=== PATIENT | female | born 1995 | race Caucasian/White ===

== ENCOUNTER 2017-03-27 10:49 | Inpatient (IN) | payer OTHER ==
[~2017-03-27] VITALS: Ht 167.6 cm; Wt 89.9 kg
[2017-03-27 10:52] VITALS: BP 161/99; PULSE 102; RESP 18; TEMP 98; O2SAT 100
[2017-03-27] MEDS ORDERED: LORazepam 2 MG TAB PO ONE (11:30)
--- NOTE | 2017-03-27 11:30 | PD ---
HPI Chief Complaint: Psychiatric Symptoms Time Seen by Provider: 11:27 Travel History International Travel<30 days: No Contact w/Intl Traveler<30days: No Traveled to known affect area: No History of Present Illness HPI 22-year-old female that presents to the ED for evaluation of psychiatric illness. Patient comes here voluntarily for evaluation of this brought by father. Patient has a chronic history of bipolar disorder and schizophrenia. Patient used to take medications but per father she's been out of medications for sometime and unclear as to how long. Per father she has been acting very abnormal. She is more paranoid and has flight of ideas. She appears to interact with internal stimuli at that she completely denies this. She denies any drug abuse or alcohol abuse. She does not know what she used to take. She herself is not a good historian but does appear to be interacting with internal stimuli. She denies any homicidal or suicidal ideation. Mother brings her here for evaluation. Unclear as to the length of time the symptoms have been ongoing but possibly for about a week. No chest pain or shortness of breath. No medical issues. PFSH Past Medical History Bipolar Disorder: Yes Immunizations Current: Yes Schizophrenia: Yes Tetanus Vaccination: Unknown Influenza Vaccination: No ?: Not LMP: UNK Past Surgical History Cholecystectomy: Yes Social History Alcohol Use: Yes (OCCASIONALLY ) Tobacco Use: No Allergies-Medications (Allergen,Severity, Reaction): Coded Allergies: No Known Allergies (Unverified , 03/27/17) Reported Meds & Prescriptions Reported Meds & Active Scripts Active Active Prescriptions or Reported Medications Unobtainable Review of Systems Except as stated in HPI: all other systems reviewed are Neg Physical Exam Narrative GENERAL: SKIN: Warm and dry. HEAD: Atraumatic. Normocephalic. EYES: Pupils equal and round. No scleral icterus. No injection or drainage. ENT: No nasal bleeding or discharge. Mucous membranes pink and moist. Tongue is midline. No uvula deviation. NECK: Trachea midline. No JVD. CARDIOVASCULAR: Regular rate and rhythm. No murmurs, S3, S4. RESPIRATORY: No accessory muscle use. Clear to auscultation. Breath sounds equal bilaterally. GASTROINTESTINAL: Abdomen soft, non-tender, nondistended. Hepatic and splenic margins not palpable. MUSCULOSKELETAL: Extremities without clubbing, cyanosis, or edema. No obvious deformities. Full range of motion of the upper and lower extremity is bilaterally. 2+ pulses bilaterally. NEUROLOGICAL: Awake and alert. No obvious cranial nerve deficits. Motor grossly within normal limits. Five out of 5 muscle strength in the arms and legs. Normal speech. PSYCHIATRIC: Psychotic mood and affect; insight and judgment diminished Data Data Last Documented VS Vital Signs Date Time Temp Pulse Resp B/P Pulse Ox O2 Delivery O2 Flow Rate FiO2 03/27/17 11:01 18 03/27/17 10:52 98.0 102 161/99 100 Orders Complete Blood Count With Diff (03/27/17 11:13) Comprehensive Metabolic Panel (03/27/17 11:13) Psych Screen (03/27/17 11:13) Drug Screen, Random Urine (03/27/17 11:13) Alcohol (Ethanol) (03/27/17 11:13) Lorazepam (Ativan) (03/27/17 11:30) Labs Laboratory Tests Test 03/27/17 11:20 White Blood Count 11.3 TH/MM3 Red Blood Count 4.58 MIL/MM3 Hemoglobin 12.9 GM/DL Hematocrit 38.8 % Mean Corpuscular Volume 84.7 FL Mean Corpuscular Hemoglobin 28.0 PG Mean Corpuscular Hemoglobin 33.1 % Concent Red Cell Distribution Width 14.0 % Platelet Count 429 TH/MM3 Mean Platelet Volume 8.1 FL Neutrophils (%) (Auto) 68.2 % Lymphocytes (%) (Auto) 21.4 % Monocytes (%) (Auto) 8.6 % Eosinophils (%) (Auto) 0.5 % Basophils (%) (Auto) 1.3 % Neutrophils # (Auto) 7.7 TH/MM3 Lymphocytes # (Auto) 2.4 TH/MM3 Monocytes # (Auto) 1.0 TH/MM3 Eosinophils # (Auto) 0.1 TH/MM3 Basophils # (Auto) 0.1 TH/MM3 CBC Comment DIFF FINAL Differential Comment MDM Medical Decision Making Medical Screen Exam Complete: Yes Emergency Medical Condition: Yes Medical Record Reviewed: Yes Interpretation(s) CBC Diagram 03/27/17 11:20 Differential Diagnosis Depression versus suicidal ideation versus anxiety versus adjustment disorder versus mood disorder versus bipolar disorder versus schizophrenia versus paranoid disorder versus psychosis versus substance abuse versus alcohol abuse versus alcohol induced psychosis versus homicidality addition versus cutting versus personality disorder Narrative Course 22-year-old female that presents to the ED for evaluation of psych. Patient was properly examined and was found to have signs and symptoms consistent with psychiatric illness. No sign of acute medical distress. Patient does appear to be somewhat psychotic but at this time she is voluntary and the father is here with her for support. Labs were drawn. Patient will be medically clear. Okay to be seen by psych. Mental health screening was discussed with the patient. Diagnosis Primary Impression: Schizophrenia Qualified Code: F20.9 - Schizophrenia, unspecified type Scripts Unable to Obtain Active Prescriptions or Reported Meds Son [place] Mar 27, 2017 11:30
[2017-03-27 11:37] LABS: AUTOMATED NEUTROPHIL # 7.7 TH/MM3 (1.8-7.7); BASOPHIL # 0.1 TH/MM3 (0-0.2); BASOPHIL % 1.3 % (0.0-2.0); EOSINOPHIL # 0.1 TH/MM3 (0-0.4); EOSINOPHIL % 0.5 % (0.0-4.0); HEMATOCRIT 38.8 % (35.0-46.0); HEMO FLAGS DIFF FINAL; LYMPH % 21.4 % (9.0-44.0); LYMPHOCYTE # 2.4 TH/MM3 (1.0-4.8); MEAN CELL VOLUME 84.7 FL (80.0-100.0); MEAN CORPUSCULAR HGB CONC 33.1 % (32.0-36.0); MONO % 8.6 % (0.0-8.0); NEUT % 68.2 % (16.0-70.0); PLATELET COUNT 429 TH/MM3 (150-450); RED BLOOD COUNT 4.58 MIL/MM3 (4.00-5.30); WHITE BLOOD COUNT 11.3 TH/MM3 (4.0-11.0)
[2017-03-27 11:57] LABS: ANION GAP 7 MEQ/L (5-15); AST (GOT) 19 U/L (15-37); BICARBONATE 25.3 MEQ/L (21.0-32.0); BLOOD UREA NITROGEN 14 MG/DL (7-18); CHLORIDE 108 MEQ/L (98-107); GLOMERULAR FILTRATION RATE 87 ML/MIN (>89); POTASSIUM 3.3 MEQ/L (3.5-5.1); SODIUM (NA) 140 MEQ/L (136-145)
[2017-03-27 12:02] LABS: ALKALINE PHOSPHATASE 137 U/L (45-117); ALT (GPT) 44 U/L (10-53); TOTAL BILIRUBIN ADULT 0.8 MG/DL (0.2-1.0)
[2017-03-27] MEDS ORDERED: POTASSIUM CHLORIDE 20 MEQ CONTROLLED RELEASE TAB PO ONE (12:15)
[2017-03-27] MEDS ORDERED: HALOPERIDOL LACTATE 5 MG/ML AMP IM ONE (13:00)
[2017-03-27 15:00] VITALS: BP 124/87; PULSE 98; RESP 18; TEMP 98; O2SAT 100
[2017-03-27] MEDS ORDERED: ALUMINUM/MAGNESIUM/SIMETH 30 ML CUP PO PRN (15:00)
[2017-03-27] MEDS ORDERED: LORazepam 0.5 MG TAB PO PRN (15:00)
[2017-03-27] MEDS ORDERED: diphenhydrAMINE HCL 50 MG/ML VIAL IM PRN (15:00)
[2017-03-27] MEDS ORDERED: LORazepam 2 MG/ML VIAL IM PRN ×2 (15:00)
[2017-03-27] MEDS ORDERED: MAGNESIUM HYDROXIDE SUSP 30 ML CUP PO PRN (15:00)
[2017-03-27] MEDS ORDERED: ACETAMINOPHEN 325 MG TAB PO PRN (15:00)
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
[2017-03-27 18:00] VITALS: BP 130/83; PULSE 90; RESP 18; TEMP 98.1; O2SAT 96
[2017-03-27] MEDS: ARIPiprazole 5 MG TAB PO SCH (20:21)
[2017-03-27] MEDS: traZODone HCL 50 MG TAB PO PRN (22:32)
[2017-03-27] MEDS: LORazepam 1 MG TAB PO PRN (23:26)
[2017-03-28 06:03] VITALS: BP 117/62; PULSE 78; RESP 19; TEMP 98; O2SAT 98
[2017-03-28 09:30] LABS: AUTOMATED NEUTROPHIL # 5.2 TH/MM3 (1.8-7.7); BASOPHIL # 0.2 TH/MM3 (0-0.2); EOSINOPHIL # 0.2 TH/MM3 (0-0.4); HEMATOCRIT 38.5 % (35.0-46.0); HEMO FLAGS DIFF FINAL; LYMPH % 22.8 % (9.0-44.0); LYMPHOCYTE # 1.8 TH/MM3 (1.0-4.8); MEAN CELL VOLUME 85.1 FL (80.0-100.0); MEAN CORPUSCULAR HGB CONC 32.9 % (32.0-36.0); MONO % 6.7 % (0.0-8.0); NEUT % 65.5 % (16.0-70.0); PLATELET COUNT 362 TH/MM3 (150-450); RED BLOOD COUNT 4.53 MIL/MM3 (4.00-5.30); RED CELL DISTRIBUTION WIDTH 13.9 % (11.6-17.2); WHITE BLOOD COUNT 7.9 TH/MM3 (4.0-11.0)
[2017-03-28 09:52] LABS: ANION GAP 9 MEQ/L (5-15); AST (GOT) 20 U/L (15-37); BLOOD UREA NITROGEN 12 MG/DL (7-18); CHLORIDE 105 MEQ/L (98-107); GLOMERULAR FILTRATION RATE 96 ML/MIN (>89); POTASSIUM 3.2 MEQ/L (3.5-5.1); SODIUM (NA) 137 MEQ/L (136-145)
[2017-03-28 10:22] LABS: ALT (GPT) 40 U/L (10-53); HDL CHOLESTEROL 33.6 MG/DL (40.0-60.0); LDL CHOLESTEROL 56 MG/DL (0-99); TOTAL BILIRUBIN ADULT 0.8 MG/DL (0.2-1.0)
[2017-03-28 10:23] LABS: ALKALINE PHOSPHATASE 120 U/L (45-117)
--- NOTE | 2017-03-28 11:46 | EKG ---
Date Performed: 03/28/2017 Time Performed: 09:44:16 PTAGE: 22 years EKG: Sinus rhythm NORMAL ECG NO PREVIOUS TRACING DOCTOR: Morro Mcclelland Interpretating Date/Time 03/28/2017 11:45:09
--- NOTE | 2017-03-28 13:53 | HHI.PYPN ---
Subjective Remarks Patient was seen and case discussed with nursing. Patient remains bizarre and disorganized. She has poor insight and minimizes the reasons for her admission and her mental health history. She denies psychotic symptoms despite nursing noted that she told her hands over her years throughout the night listening to wind chimes. Patient speaks with exaggerated body language. Denies suicidal ideation intent or plan. Potassium level is low at 3.2 Objective Alert: Yes [place]: Person, Place, Date Mood: Oppositional Affect: Other (irritable) Memory Intact: Immediate Hallucinations: Auditory (denies but per nursing yes) Delusions: No Delusion Type: Other (none elicited) Suicidal: Ideation (denies) Homicidal: Ideation (denies) Insight/Judgment Poor Labs Test 03/28/17 08:32 White Blood Count 7.9 TH/MM3 Red Blood Count 4.53 MIL/MM3 Hemoglobin 12.7 GM/DL Hematocrit 38.5 % Mean Corpuscular Volume 85.1 FL Mean Corpuscular Hemoglobin 28.0 PG Mean Corpuscular Hemoglobin 32.9 % Concent Red Cell Distribution Width 13.9 % Platelet Count 362 TH/MM3 Mean Platelet Volume 8.2 FL Neutrophils (%) (Auto) 65.5 % Lymphocytes (%) (Auto) 22.8 % Monocytes (%) (Auto) 6.7 % Eosinophils (%) (Auto) 3.0 % Basophils (%) (Auto) 2.0 % Neutrophils # (Auto) 5.2 TH/MM3 Lymphocytes # (Auto) 1.8 TH/MM3 Monocytes # (Auto) 0.5 TH/MM3 Eosinophils # (Auto) 0.2 TH/MM3 Basophils # (Auto) 0.2 TH/MM3 CBC Comment DIFF FINAL Differential Comment Sodium Level 137 MEQ/L Potassium Level 3.2 MEQ/L Chloride Level 105 MEQ/L Carbon Dioxide Level 23.0 MEQ/L Anion Gap 9 MEQ/L Blood Urea Nitrogen 12 MG/DL Creatinine 0.74 MG/DL Estimat Glomerular Filtration 96 ML/MIN Rate Random Glucose 108 MG/DL Calcium Level 9.2 MG/DL Total Bilirubin 0.8 MG/DL Aspartate Amino Transf 20 U/L (AST/SGOT) Alanine Aminotransferase 40 U/L (ALT/SGPT) Alkaline Phosphatase 120 U/L Total Protein 7.5 GM/DL Albumin 4.1 GM/DL Triglycerides Level 68 MG/DL Cholesterol Level 103 MG/DL LDL Cholesterol 56 MG/DL HDL Cholesterol 33.6 MG/DL Cholesterol/HDL Ratio 3.06 RATIO Vitamin B12 Level 878 PG/ML 25-Hydroxy Vitamin D Total 34.8 ng/ML Thyroid Stimulating Hormone 3.550 uIU/ML 3rd Gen Vitals/IOs Vital Signs Date Time Temp Pulse Resp B/P Pulse Ox O2 Delivery O2 Flow Rate FiO2 03/28/17 06:03 98.0 78 19 117/62 98 Assessment & Plan Problem List: (1) Paranoid type schizophrenia, chronic state with acute exacerbation ICD Code: F20.0 Assessment & Plan Replenish potassium, consult medicine Justification for Cont. Inpt. Patient would decompensate in a less restrictive setting Junior Leal DO Mar 28, 2017 13:53
[2017-03-28] MEDS ORDERED: POTASSIUM CHLORIDE 10 MEQ CONTROLLED RELEASE TAB PO ONE (14:00)
[2017-03-28] MEDS: NICOTINE 14 MG/24 HR PATCH T-DERMAL SCH (14:00)
--- NOTE | 2017-03-28 14:36 | PD.CONS ---
HPI Service [facility] Consult Requested By Dr Leal psych Reason for Consult medical management, hypokalemia Primary Care Physician No Primary Care Physician Diagnoses: History of Present Illness 22-year-old female that presented to the ED for evaluation of psychiatric illness. Patient has a h/o schizophrenia and bipolar disorder. Patient used to take medications but per father she's been out of medications for sometime and unclear as to how long. Per father she has been acting very abnormal. She is more paranoid and has flight of ideas. She denies any drug abuse or alcohol abuse. She does not know what she used to take. She herself is not a good historian She denies any homicidal or suicidal ideation. Unclear as to the length of time the symptoms have been ongoing but possibly for about a week. No chest pain or shortness of breath. No medical issues. she is admitted to psych unit. Patient was noted with low K level. poss 2/2 decrease PO intake 2/2 psychosis. Give K Cl supplement and recheck level in the AM. Encouraged PO intake. 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 Reported Medications Reported Meds & Active Scripts Active Active Prescriptions or Reported Medications Unobtainable Family History Mother with schizophrenia Social History Denies tobacco use or illicit drug use. Occasional EtOH use. Physical Exam Vital Signs Vital Signs Date Time Temp Pulse Resp B/P Pulse Ox O2 Delivery O2 Flow Rate FiO2 03/28/17 06:03 98.0 78 19 117/62 98 03/27/17 18:00 98.1 90 18 130/83 96 03/27/17 18:00 98.1 90 18 130/83 96 03/27/17 15:00 98.0 98 18 124/87 100 Physical Exam GENERAL: This is a pleasant 22 yo F, well-nourished, well-developed patient, in no apparent distress. SKIN: No rashes, ecchymoses or lesions. Cool and dry. HEAD: Atraumatic. Normocephalic. No temporal or scalp tenderness. EYES: Pupils equal round and reactive. Extraocular motions intact. No scleral icterus. No injection or drainage. ENT: Nose without bleeding, purulent drainage or septal hematoma. Throat without erythema, tonsillar hypertrophy or exudate. Uvula midline. Airway patent. NECK: Trachea midline. No JVD or lymphadenopathy. Supple, nontender, no meningeal signs. CARDIOVASCULAR: Regular rate and rhythm without murmurs, gallops, or rubs. RESPIRATORY: Clear to auscultation. Breath sounds equal bilaterally. No wheezes , rales, or rhonchi. GASTROINTESTINAL: Abdomen soft, non-tender, nondistended. No hepato-splenomegaly , or palpable masses. No guarding. MUSCULOSKELETAL: Extremities without clubbing, cyanosis, or edema. No joint tenderness, effusion, or edema noted. No calf tenderness. Negative Homans sign bilaterally. NEUROLOGICAL: Awake and alert. Cranial nerves II through XII intact. Motor and sensory grossly within normal limits. Five out of 5 muscle strength in all muscle groups. Normal speech. Laboratory Laboratory Tests Test 03/28/17 08:32 White Blood Count 7.9 Red Blood Count 4.53 Hemoglobin 12.7 Hematocrit 38.5 Mean Corpuscular Volume 85.1 Mean Corpuscular Hemoglobin 28.0 Mean Corpuscular Hemoglobin 32.9 Concent Red Cell Distribution Width 13.9 Platelet Count 362 Mean Platelet Volume 8.2 Neutrophils (%) (Auto) 65.5 Lymphocytes (%) (Auto) 22.8 Monocytes (%) (Auto) 6.7 Eosinophils (%) (Auto) 3.0 Basophils (%) (Auto) 2.0 Neutrophils # (Auto) 5.2 Lymphocytes # (Auto) 1.8 Monocytes # (Auto) 0.5 Eosinophils # (Auto) 0.2 Basophils # (Auto) 0.2 CBC Comment DIFF FINAL Differential Comment Sodium Level 137 Potassium Level 3.2 Chloride Level 105 Carbon Dioxide Level 23.0 Anion Gap 9 Blood Urea Nitrogen 12 Creatinine 0.74 Estimat Glomerular Filtration 96 Rate Random Glucose 108 Calcium Level 9.2 Total Bilirubin 0.8 Aspartate Amino Transf 20 (AST/SGOT) Alanine Aminotransferase 40 (ALT/SGPT) Alkaline Phosphatase 120 Total Protein 7.5 Albumin 4.1 Triglycerides Level 68 Cholesterol Level 103 LDL Cholesterol 56 HDL Cholesterol 33.6 Cholesterol/HDL Ratio 3.06 Vitamin B12 Level 878 25-Hydroxy Vitamin D Total 34.8 Thyroid Stimulating Hormone 3.550 3rd Gen Result Diagram: 03/28/17 0832 03/28/1732 Assessment and Plan Assessment and Plan 22 yo F with Schizophrenia Bipolar disorder Continue management per psychiatry Hypokalemia K 3.2 . Replaced. Monitor and replace as need. Encourage PO intake. DVT ppx ambulation . Tori Irby MD Mar 28, 2017 14:36
[2017-03-28 18:10] VITALS: BP 141/77; PULSE 71; RESP 18; TEMP 98.6; O2SAT 97
[2017-03-28] MEDS: traZODone HCL 50 MG TAB PO PRN (20:12)
[2017-03-28] MEDS: ARIPiprazole 5 MG TAB PO SCH (20:13)
[2017-03-28] MEDS: LORazepam 1 MG TAB PO PRN (20:13)
[2017-03-28] MEDS: diphenhydrAMINE HCL 50 MG CAP PO PRN (23:48)
[2017-03-29 05:50] VITALS: BP 121/77; PULSE 95; RESP 18; TEMP 97.1; O2SAT 99
[2017-03-29] MEDS: REMOVE OLD PATCH T-DERMAL SCH (08:47)
[2017-03-29] MEDS: NICOTINE 14 MG/24 HR PATCH T-DERMAL SCH (08:47)
[2017-03-29] MEDS: LORazepam 1 MG TAB PO PRN ×2 (11:01→20:27)
[2017-03-29 13:22] LABS: HEMOGLOBIN A1a 1.3 %; HEMOGLOBIN A1b 0.7 %; HEMOGLOBIN Ao 86.3 %; HEMOGLOBIN F 1.2 %; HEMOGLOBIN LA1C 1.6 %; HEMOGLOBIN P3 3.3 %
--- NOTE | 2017-03-29 13:32 | HHI.PYPN ---
Subjective Remarks Patient was seen and case discussed with nursing. Patient remains with poor insight. Per nursing she had a she had an aggressive episode this morning she started cursing at staff flailing herself over the piano. She was once again stuffing tissues in her here which nursing believes may have been from auditory hallucinations are patient says she was annoyed by the music playing in the background. She is bright and cheerful has made friends with another patient. She has slept 6 hours. Describes her mood is "good." Affect is elevated. Objective Alert: Yes [place]: Person, Place, Date Mood: Calm Affect: Labile, Other (irritable) Memory Intact: Immediate Hallucinations: Auditory (denies but per nursing yes) Delusions: No Delusion Type: Other (none elicited) Suicidal: Ideation (denies) Homicidal: Ideation (denies) Insight/Judgment Poor Vitals/IOs Vital Signs Date Time Temp Pulse Resp B/P Pulse Ox O2 Delivery O2 Flow Rate FiO2 03/29/17 05:50 97.1 95 18 121/77 99 Assessment & Plan Problem List: (1) Paranoid type schizophrenia, chronic state with acute exacerbation ICD Code: F20.0 Assessment & Plan Continue current treatment plan Justification for Cont. Inpt. Patient will decompensate in a less restrictive setting Junior Leal DO Mar 29, 2017 13:32
[2017-03-29 16:51] LABS: POTASSIUM 3.8 MEQ/L (3.5-5.1)
[2017-03-29 17:20] VITALS: BP 113/72; PULSE 70; RESP 18; TEMP 97.7; O2SAT 99
[2017-03-29] MEDS: ARIPiprazole 5 MG TAB PO SCH (20:27)
[2017-03-29] MEDS: traZODone HCL 50 MG TAB PO PRN (20:27)
[2017-03-29] MEDS: diphenhydrAMINE HCL 50 MG CAP PO PRN (21:51)
[2017-03-30 05:58] VITALS: BP 125/58; PULSE 96; RESP 18; TEMP 98.2
[2017-03-30] MEDS: REMOVE OLD PATCH T-DERMAL SCH (08:04)
[2017-03-30] MEDS: NICOTINE 14 MG/24 HR PATCH T-DERMAL SCH (08:04)
--- NOTE | 2017-03-30 12:26 | PD.CONS ---
Provisional Diagnosis Admission Date Mar 27, 2017 at 14:52 [place]. Schizophrenia, chronic paranoid type History of Present Illness Service Psychiatry Consult Requested By Primary Care Physician No Primary Care Physician HPI This is a 22-year-old female presenting voluntarily for bizarre behavior and dangerous behavior. This physician spoke to the patient's nurse, her father and interviewed her individually. Patient reportedly left her home, where she resides with her boyfriend, and took a long walk yesterday. She is a very poor historian and unable to explain why she took this walk but at some point admitted that she was paranoid and that there was something going on surgically with her and that she wanted to see her father and that there was another couple who were somehow involved but she ended in a neighborhood where she was noted to be acting in a bizarre fashion. Apparently there was a real estate asset manager who called for assistance because the patient was standing in the middle of the road. The patient continues to demonstrate significant looseness of associations. She is unable to discern why she was behaving the way she did or the danger to herself. Her father states that she has not been taking antipsychotic medicine as prescribed. She was prescribed Seroquel after being treated at [place], in the [facility]. The patient was noted to be wearing her T-shirt inside out and backwards. Her explanation for doing so was that she did not have on a broad. Obviously not wearing a bra made no difference to wearing the shirt inside out and backwards. Patient reportedly does not have a history of alcohol or substance abuse. 03/30/17 Above note dictated by Dr. Epi Rincon reviewed and agreed with. Patient 18 for a white female admitted to Dr. Rincon service under the Lemus act. Patient seen by me and I'll with nurse borrego and medical student Jason. Patient delusional intense somewhat manic with auditory hallucinations and marked paranoia with little insight. Dr. Rincon has signed first opinion petition supporting Lemus act. I agree. Patient meets criteria for involuntary psychiatric hospitalization under the Lemus act. Thus I will do second opinion petition supporting Lemus act Past Family Social History Coded Allergies: No Known Allergies (Unverified , 03/27/17) Unable to Obtain Active Prescriptions or Reported Meds Current Medications Medications (Trade) Dose Ordered Sig/Radha Route Start Time Stop Time Status Last Admin (Ativan) 1 mg Q6H PRN PO 03/27/17 15:00 03/29/17 20:27 (Ativan Inj) 1 mg Q6H PRN IM 03/27/17 15:00 (Benadryl) 50 mg Q6H PRN PO 03/27/17 15:00 03/29/17 21:51 (Benadryl Inj) 50 mg Q6H PRN IM 03/27/17 15:00 03/29/17 11:01 (Tylenol) 650 mg Q4H PRN PO 03/27/17 15:00 (Milk Of Magnesia Liq) 30 ml DAILY PRN PO 03/27/17 15:00 (Mag-Al Plus Susp Liq) 30 ml Q6H PRN PO 03/27/17 15:00 (Desyrel) 50 mg HS PRN PO 03/27/17 15:00 03/29/17 20:27 (Atarax) 50 mg Q6H PRN PO 03/27/17 16:00 (Abilify) 5 mg HS PO 03/27/17 21:00 03/29/17 20:27 (Habitrol 14 Mg Patch.24 Hr) 1 patch DAILY T-DERMAL 03/28/17 14:00 03/30/17 08:04 Miscellaneous Information 1 DAILY T-DERMAL 03/29/17 09:00 03/30/17 08:04 Patient's Strengths (min. 2) Patient is verbal and has a supportive father. Physical Exam Vital Signs Vital Signs Date Time Temp Pulse Resp B/P Pulse Ox O2 Delivery O2 Flow Rate FiO2 03/30/17 05:58 98.2 96 18 125/58 03/29/17 17:20 99 Mental Status Examination Speech: Slow, Stuttering, Circumstantial, Tangential Orientation: x3 Memory: Unremarkable Thought Process: Loose Association Thought Content: Bizarre thinking, Paranoid, Ideas of Reference Hallucination Type: None Attention and Concentration: Good Suicidal Ideation: No Previous Suicide Attempts: No Homicidal Ideation: No Previous Homicide Attempts: No Insight: Poor Judgment: Unrealistic Affect: Anxious Affect if Inappropriate: Blunt Mood: Anxious Motor Activity: Normal gait Assessment & Plan Problem List: (1) Paranoid type schizophrenia, chronic state with acute exacerbation ICD Code: F20.0 Assessment & Plan Estimated LOS: Randall Montoya MD Mar 30, 2017 12:26
[2017-03-30] MEDS ORDERED: ARIP1TAB11 PO (13:35)
--- NOTE | 2017-03-30 13:44 | HHI.PYPN ---
Subjective Remarks Patient wanting to leave but she remains delusional, disorganized, demonstrating impaired insight and impaired judgment. Review of Systems Except as stated in HPI: all other systems reviewed are Neg Objective Alert: Yes [place]: Person, Place, Date Mood: Calm Affect: Labile, Other (irritable) Memory Intact: Immediate Hallucinations: Auditory (denies but per nursing yes) Delusions: No Delusion Type: Other (none elicited) Suicidal: Ideation (denies) Homicidal: Ideation (denies) Insight/Judgment Impaired Labs Test 03/29/17 16:24 Potassium Level 3.8 MEQ/L Magnesium Level 2.0 MG/DL Vitals/IOs Vital Signs Date Time Temp Pulse Resp B/P Pulse Ox O2 Delivery O2 Flow Rate FiO2 03/30/17 05:58 98.2 96 18 125/58 03/29/17 17:20 99 Assessment & Plan Problem List: (1) Paranoid type schizophrenia, chronic state with acute exacerbation ICD Code: F20.0 Assessment & Plan Estimated LOS: days patient remains psychotic and has yet to respond to Abilify. We will increase the dose to 10 mg daily at bedtime. Justification for Cont. Inpt. Likely to decompensate a lower level of care. Epi Rincon MD Mar 30, 2017 13:44
[2017-03-30] MEDS: LORazepam 1 MG TAB PO PRN ×2 (14:54→16:49)
[2017-03-30] MEDS: hydrOXYzine HCL 50 MG TAB PO PRN (16:49)
--- NOTE | 2017-03-30 18:05 | HHI.PR ---
Addendum to Inpatient Note Addendum Reason: Additional Documentation Additional Information Labs reviewed WBC within normal, potassium 3.8, magnesium 2.0. Discussed with RN, patient doesn't have any acute medical problems but more of psych/ behavioral problems. Stable from Hospitalist standpoint. We will sign off. Reconsult as needed. Discuss with Rae Estrada Mar 30, 2017 18:05
[2017-03-30] MEDS: traZODone HCL 50 MG TAB PO PRN (22:02)
[2017-03-30] MEDS: ARIPiprazole 10 MG TAB PO SCH (22:03)
[2017-03-31 06:09] VITALS: BP 114/69; PULSE 63; RESP 20; TEMP 98.3; O2SAT 98
[2017-03-31] MEDS: REMOVE OLD PATCH T-DERMAL SCH (09:00)
[2017-03-31] MEDS: NICOTINE 14 MG/24 HR PATCH T-DERMAL SCH (10:07)
--- NOTE | 2017-03-31 13:00 | HHI.PYPN ---
Subjective Remarks Patient continues to be psychotic with paranoid delusions. She is easily confused and easily agitated. She has been started on Abilify by this physician. Review of Systems Except as stated in HPI: all other systems reviewed are Neg Objective Alert: Yes [place]: Person, Place, Date Mood: Calm Affect: Labile, Other (irritable) Memory Intact: Immediate Hallucinations: Auditory (denies but per nursing yes) Delusions: No Delusion Type: Other (none elicited) Suicidal: Ideation (denies) Homicidal: Ideation (denies) Insight/Judgment impaired. Vitals/IOs Vital Signs Date Time Temp Pulse Resp B/P Pulse Ox O2 Delivery O2 Flow Rate FiO2 03/31/17 06:09 98.3 63 20 114/69 98 Assessment & Plan Problem List: (1) Paranoid type schizophrenia, chronic state with acute exacerbation ICD Code: F20.0 Assessment & Plan Estimated LOS: days patient's mother continues to support this physician's efforts to treat the patient. However, patient did take Abilify as prescribed. If she tolerates it, this physician wants to try Abilify maintain a due to the patient's history of noncompliance. Justification for Cont. Inpt. Unable to care for self and likely to decompensate at lower level of care. Epi Rincon MD Mar 31, 2017 13:00
[2017-03-31] MEDS: hydrOXYzine HCL 50 MG TAB PO PRN (14:35)
[2017-03-31 20:00] VITALS: BP 113/67; PULSE 100; RESP 18; TEMP 97.6; O2SAT 98
[2017-03-31] MEDS: LORazepam 1 MG TAB PO PRN (20:07)
[2017-03-31] MEDS: traZODone HCL 50 MG TAB PO PRN (20:07)
[2017-03-31] MEDS: ARIPiprazole 10 MG TAB PO SCH (20:07)
[2017-03-31] MEDS: diphenhydrAMINE HCL 50 MG CAP PO PRN (20:07)
[2017-04-01 05:51] VITALS: BP 136/75; PULSE 107; RESP 17; TEMP 97.2; O2SAT 99
[2017-04-01] MEDS: NICOTINE 14 MG/24 HR PATCH T-DERMAL SCH (08:34)
[2017-04-01] MEDS: REMOVE OLD PATCH T-DERMAL SCH (08:34)
[2017-04-01] MEDS: LORazepam 1 MG TAB PO PRN (09:39)
--- NOTE | 2017-04-01 12:46 | HHI.PYPN ---
Subjective Remarks Patient apparently expressing thoughts that she is . Beta hCG being tested. Will hold off further antipsychotic medication until this is resolved. Patient remains delusional and may also be a delusion. This physician spoke to the patient's nurse about her behavior. Also reviewed the chart. Review of Systems Except as stated in HPI: all other systems reviewed are Neg Objective Alert: Yes [place]: Person, Place, Date Mood: Anxious Affect: Restricted, Other (irritable) Memory Intact: Immediate Hallucinations: Auditory (denies but per nursing yes) Delusions: No Delusion Type: Paranoid, Other (none elicited) Suicidal: Ideation (denies) Homicidal: Ideation (denies) Insight/Judgment Remain impaired. Vitals/IOs Vital Signs Date Time Temp Pulse Resp B/P Pulse Ox O2 Delivery O2 Flow Rate FiO2 04/01/17 05:51 97.2 107 17 136/75 99 Assessment & Plan Problem List: (1) Paranoid type schizophrenia, chronic state with acute exacerbation ICD Code: F20.0 Assessment & Plan Estimated LOS: days patient continues to be psychotic with paranoid delusions. She may also be delusional about her comment that she is . However, this physician cannot proceed with further treatment without that information. Justification for Cont. Inpt. Patient likely to decompensate at lower level of care. Epi Rincon MD Apr 01, 2017 12:46
[2017-04-01 13:15] LABS: BETA HCG QUANT LESS THAN 1 MIU/ML (0-5)
[2017-04-01 18:36] VITALS: BP 108/63; PULSE 102; RESP 18; TEMP 98.4; O2SAT 98
[2017-04-01] MEDS: ARIPiprazole 10 MG TAB PO SCH (21:31)
[2017-04-02 06:16] VITALS: BP 113/59; PULSE 69; RESP 18; TEMP 97.6; O2SAT 100
[2017-04-02] MEDS: NICOTINE 14 MG/24 HR PATCH T-DERMAL SCH (08:38)
[2017-04-02] MEDS: REMOVE OLD PATCH T-DERMAL SCH (08:40)
--- NOTE | 2017-04-02 16:50 | HHI.PYPN ---
Subjective Remarks Patient seen in [place] with nurse Mariel and medical student Jason, chart reviewed. Patient did have UCG test done patient is not . Patient intrusive intense quite flirtatious somewhat labile. Will increase at bedtime Abilify to 20 mg Review of Systems Except as stated in HPI: all other systems reviewed are Neg Objective Alert: Yes [place]: Person, Place, Date Mood: Anxious Affect: Restricted, Other (irritable) Memory Intact: Immediate Hallucinations: Auditory (denies but per nursing yes) Delusions: No Delusion Type: Paranoid, Other (none elicited) Suicidal: Ideation (denies) Homicidal: Ideation (denies) Insight/Judgment Very poor Vitals/IOs Vital Signs Date Time Temp Pulse Resp B/P Pulse Ox O2 Delivery O2 Flow Rate FiO2 04/02/17 06:16 97.6 69 18 113/59 100 Assessment & Plan Problem List: (1) Paranoid type schizophrenia, chronic state with acute exacerbation ICD Code: F20.0 Assessment & Plan Estimated LOS: days patient appears to continue somewhat psychotic somewhat sexual provocative in her behaviors. See medication adjustment of Justification for Cont. Inpt. At this time patient decompensate placed in a lower level of care Discharge Planning To be determined Randall Montoya MD Apr 02, 2017 16:50
[2017-04-02 17:10] VITALS: BP 125/59; PULSE 89; RESP 17; TEMP 98.1; O2SAT 100
[2017-04-02] MEDS: traZODone HCL 50 MG TAB PO PRN (21:22)
[2017-04-02] MEDS: diphenhydrAMINE HCL 50 MG CAP PO PRN (21:23)
[2017-04-02] MEDS: LORazepam 1 MG TAB PO PRN (22:45)
[2017-04-03 05:22] VITALS: BP 104/52; PULSE 58; RESP 18; TEMP 97.6
[2017-04-03] MEDS: REMOVE OLD PATCH T-DERMAL SCH (09:00)
[2017-04-03] MEDS: NICOTINE 14 MG/24 HR PATCH T-DERMAL SCH (09:30)
[2017-04-03] MEDS ORDERED: ARIP1TAB7 PO (11:15)
--- NOTE | 2017-04-03 11:23 | HHI.DS ---
Psychiatry Discharge Summary Inpatient Psychiatric care?: Yes Advance Directive: No Reason Not Provided: Due to Patient Condition Mental Health AdvanceDirective: No Health Care Proxy: No Admission Admission Date Mar 27, 2017 at 14:52 Admission Diagnosis: (1) Paranoid type schizophrenia, chronic state with acute exacerbation ICD Code: F20.0 Brief History This is a 22-year-old female presenting voluntarily for bizarre behavior and dangerous behavior. This physician spoke to the patient's nurse, her father and interviewed her individually. Patient reportedly left her home, where she resides with her boyfriend, and took a long walk yesterday. She is a very poor historian and unable to explain why she took this walk but at some point admitted that she was paranoid and that there was something going on surgically with her and that she wanted to see her father and that there was another couple who were somehow involved but she ended in a neighborhood where she was noted to be acting in a bizarre fashion. Apparently there was a real estate development manager who called for assistance because the patient was standing in the middle of the road. The patient continues to demonstrate significant looseness of associations. She is unable to discern why she was behaving the way she did or the danger to herself. Her father states that she has not been taking antipsychotic medicine as prescribed. She was prescribed Seroquel after being treated at [place], in the [facility]. The patient was noted to be wearing her T-shirt inside out and backwards. Her explanation for doing so was that she did not have on a broad. Obviously not wearing a bra made no difference to wearing the shirt inside out and backwards. Patient reportedly does not have a history of alcohol or substance abuse. 03/30/17 Above note dictated by Dr. Epi Rincon reviewed and agreed with. Patient 18 for a white female admitted to Dr. Rincon service under the Lemus act. Patient seen by me and I'll with nurse salima and medical student Jason. Patient delusional intense somewhat manic with auditory hallucinations and marked paranoia with little insight. Dr. Rincon has signed first opinion petition supporting Lemus act. I agree. Patient meets criteria for involuntary psychiatric hospitalization under the Lemus act. Thus I will do second opinion petition supporting Lemus act Tobacco Use In Past 30 Days: Refused To Answer Alcohol Use: Never Hospital Course Patient's delusions and bizarre behaviors have slowly improved. She now denies suicidality homicidality voices or visions. She is been compliant with her medications. Showing good behavior on the unit. Participating in groups. She acknowledges she needs to be compliant with her medications. Does have existing i psychiatric services in the community through [facility]. At this time patient along the meets criteria for inpatient psychiatric hospitalization. Patient be discharged today to herself Rx 1 month, [facility] Results Blood Pressure 104 / 52 Vital Signs Date Time Temp Pulse Resp B/P Pulse Ox O2 Delivery O2 Flow Rate FiO2 04/03/17 05:22 97.6 58 18 104/52 04/02/17 17:10 100 Alcohol level negative Summary of Procedures None done Pending results at discharge: No Medications # of Antipsychotic meds at D/C: 1 Approp Antipsych med options 1 - Minimum of three failed multiple trials of monotherapy. 2 - Documented plan to taper to monotherapy due to previous use of multiple meds OR cross-taper in progress at D/C. 3 - Documentation of augmentation of Clozapine. 4 - Justification other than those listed in allowable values 1-3, document here : Discharge Discharge Date: Apr 03, 2017 Discharge Diagnosis: (1) Paranoid type schizophrenia, chronic state with acute exacerbation Diagnosis: Principal ICD Code: F20.0 (2) Paranoid schizophrenia, chronic condition Diagnosis: Principal ICD Code: F20.0 Mental Status Exam at Disch Alert oriented white female seen with nurse Jose, she has normoactive, mood is euthymic slightly intense with slight increase intensity of affect with normal range of affect. Speech rate and rhythm within normal limits though no formal thought disorders. No auditory or visual hallucinations no delusions. Insight and judgment poor. Cognition grossly intact Pt Condition on Discharge: Stable Discharge Disposition: Discharge Home Discharge Instructions Diet Instructions: As Tolerated, No Restrictions Activities you can perform: Regular-No Restrictions Scheduled [facility]ointment: [facility] Appointment Time: 7:30am Discharge Time > 30 minutes Discharge/Advance Care Plan Health Problems: (1) Paranoid type schizophrenia, chronic state with acute exacerbation Goals to promote your health * To prevent worsening of your condition and complications * To maintain your health at the optimal level Directions to meet your goals Take your medications as prescribed Follow your dietary instruction Follow activity as directed Keep your appointments as scheduled Take your immunizations and boosters as scheduled If your symptoms worsen call your PCP, if no PCP go to Urgent Care Center or Emergency Room For 20/04 questions related to your inpatient stay or results of tests pending at discharge, please contact Dr. Randall Montoya at Smoking is Dangerous to Your Health. Avoid second hand smoking Randall Montoya MD Apr 03, 2017 11:23
== END 2017-04-03 16:00 | disposition home or self-care (01) | DRG 885 ==
LOC: NEPC 10:49 → NEDA 14:52 → H260 15:35 → H270 03-30 16:30
PROVIDERS: ADMIT Psychiatry & Neurology Psychiatry; ATTEND Psychiatry & Neurology Psychiatry
DX: F20.0 Paranoid schizophrenia (principal); Z91.14 Patient's other noncompliance with medication regimen; E87.6 Hypokalemia; E66.9 Obesity, unspecified; Z68.31 Body mass index [BMI] 31.0-31.9, adult; F31.9 Bipolar disorder, unspecified
CPT/HCPCS: 80053; 80061; 80307; 82306; 82607; 83036; 83735; 84132; 84443; 84702; 85025; 93005; J1200; J2060; Q0163